=== PATIENT | male | born 2005 | race African-American/Black ===

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

== ENCOUNTER 2025-05-14 01:30 | Inpatient (IN) | payer OTHER, SELFPAY ==
[2025-05-14] VITALS (56 sets, daily range): BP systolic 154–215; BP diastolic 77–116; PULSE 96–155; RESP 18–43; TEMP 36.5–37.7; O2SAT 88–99; BMI 48.1
--- NOTE | ~2025-05-14 | XR_ITS ---
Examination: XR chest 1V portable Clinical History: cough, wheeze, dyspnea Comparison: 05/02/2011 Technique: Portable AP Findings: Heart size normal. Right basilar opacity not excluded. No acute bony abnormality. IMPRESSION: 1. Right basilar airspace opacity not excluded. Recommend PA and lateral films with deep inspiration. Reviewed, dictated and finalized at location R.
--- NOTE | ~2025-05-14 | CT_ITS ---
CTA chest PE protocol HISTORY:?Pulm embolism . COMPARISON: None. TECHNIQUE: Following the noncontrasted anesthesiology resident, axial images of the thorax were obtained following infusion of 100 cc of Isovue 370. Post-processing on an independent workstation was performed to reconstruct MIP images for evaluation of the thoracic vasculature. FINDINGS: There is no pulmonary embolism, aortic dissection, thoracic aneurysm or pericardial fluid. Heart is enlarged. Groundglass infiltrates are noted in the lower lobes bilaterally. No pleural effusion or pneumothorax is noted. There is no axillary, mediastinal or hilar adenopathy. Limited evaluation of the upper abdomen demonstrates no gross abnormalities. Review of bone windows demonstrates no osteoblastic or lytic lesions. IMPRESSION: There is no pulmonary embolism, aortic dissection, pericardial fluid or thoracic aneurysm. There are mild groundglass infiltrate in the lower lobes bilaterally. All CT scans at this facility are performed using low dose modulation techniques as appropriate to perform exam including the following: automated exposure control; use of iterative reconstruction technique; adjustment of the mA and/or kV according to patient size (this includes techniques or standardized protocols for targeted exams where dose is matched to indication/reason for exam). Reviewed, dictated and finalized at location S. IMPRESSION: There is no pulmonary embolism, aortic dissection, pericardial fluid or thoraci c aneurysm. There are mild groundglass infiltrate in the lower lobes bilaterally. All CT scans at this facility are performed using low dose modulation techniqu es as appropriate to perform exam including the following: automated exposure c ontrol; use of iterative reconstruction technique; adjustment of the mA and/or kV according to patient size (this includes techniques or standardized protocol s for targeted exams where dose is matched to indication/reason for exam).
--- NOTE | ~2025-05-14 | XR_ITS ---
COMPARISON:[ None] FINDINGS: Frontal and lateral views of the chest were obtained.[ The lungs are clear. ] [ ] [The heart size is normal in size.] [Pulmonary vasculature is unremarkable.] [ ] [Osseous structures are intact.] IMPRESSION: [No acute lung findings.] [ ] Reviewed, dictated and finalized at location S.
--- NOTE | 2025-05-14 02:00 | ECG_ITS ---
Test Date: 2025-05-14 03:36:56 Measurements Intervals Bone Gap Rate: 138 P: 85 IN: 165 QRS: 78 QRSD: 110 T: 4 QT: 330 QTc: 500 Interpretive Statements SINUS TACHYCARDIA NONSPECIFIC ST-T WAVE ABNORMALITY- INFERIOR LEADS BASELINE ARTIFACT- I, II, III, AVR, AVL, AVF, V1 ABNORMAL ECG No previous ECG available for comparison Electronically Signed On 05-14-2025 06:29:09 CDT by Kevin Funes D.O.
--- NOTE | 2025-05-14 02:03 | ED.ASTHMA ---
HPI - Asthma General Chief Complaint: Asthma Stated Complaint: Asthma Time Seen by Provider: 05/14/25 01:54 Source: patient and family Mode of arrival: ambulatory Limitations: no limitations History of Present Illness HPI Narrative: Patient is a 20-year-old male presents to the emergency department accompanied by father complaining of an asthma exacerbation. Patient notes it started a few days ago with the runny nose and congestion and he started to feel some difficulty breathing, notes that he has a nebulizer home but the tubing is a step and is in getting an affective nebulizer treatment. Patient is he took a prednisone he had left over from a while ago today. Patient is that he took some Benadryl for the congestion. Patient admits to a cough productive of yellow sputum. 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 Patient has not had any requirement for ICU or noninvasive positive-pressure ventilation or intubation throughout adolescents. Patient denies any known fevers, but admits to feeling warm. Patient notes the breathing treatments he was able to get with his machine helped but it is coming right back. Patient denies chest pain. Patient denies vomiting, diarrhea. Patient denies seeing a piccoloist. Patient notes he manages his asthma when asked who manages his asthma. Related Data Allergies Allergy/AdvReac Type Severity Reaction Status Date / Time Penicillins Allergy Rash Verified 05/14/25 01:39 Review of Systems Review of Systems: A 10 system review of systems was completed on the patient and is negative except for what is stated in the HPI. Nursing and ancillary documentation was reviewed. [facility] Past Medical History Medical History (Updated 05/14/25 @ 07:05 by Damon Jordan DO) Asthma Social History Social History (Updated 06/30/22 @ 04:02 by José Miguel Pardo MD) Smoking status: Never smoker Alcohol intake: never Substance use: never Exam Narrative: CONST: Moderate acute respiratory distress, conversational dyspnea. Obese. On 2.5 L nasal cannula. HENMT: Head is normocephalic and atraumatic. Tacky mucous membranes. No posterior oropharynx erythema. Bilateral nasal congestion. EYES: No scleral icterus. No conjunctival injection or pallor. PERRL. NECK: No meningeal signs. RESP: Diffuse expiratory wheeze with a moderately prolonged expiratory phase, no focal adventitious breath sounds. CARDIO: Tachycardic rate. Regular rhythm. 2+ DP and radial pulses bilaterally. GI: Nondistended. No tenderness to palpation. Soft. : No CVA tenderness to palpation. SKIN: No rashes or lesions noted on exposed skin. NEURO: Oriented x3. Moves all extremities. EXTREM/MSK/BACK: No pedal edema. PSYCH: Normal affect. Course Vital Signs Vital signs: Vital Signs Temperature 99.9 F H 05/14/25 01:34 Pulse Rate 130 H 05/14/25 01:34 Respiratory Rate 24 H 05/14/25 01:34 Blood Pressure 202/116 H 05/14/25 01:34 Pulse Oximetry 91 05/14/25 01:34 Oxygen Delivery Room Air 05/14/25 01:34 Temperature 99.9 F H 05/14/25 01:34 Pulse Rate 123 H 05/14/25 05:30 Respiratory Rate 28 H 05/14/25 05:30 Blood Pressure 168/103 H 05/14/25 04:01 Pulse Oximetry 94 05/14/25 05:30 Oxygen Delivery Room Air 05/14/25 01:46 MDM - Asthma MDM Narrative Medical decision making narrative: Patient presents with the above complaint. Initial vitals are remarkable for a blood pressure of 202/116, tachycardia with a pulse of 130, tachypneic with a respiratory rate of 24, temperature of 99.9? F, saturating 91% on room air. Physical examination as noted above. Differential diagnosis includes was not limited to: Asthma exacerbation, pneumonia, pneumothorax, viral URI, metabolic derangement, dehydration, heart failure, hypertensive urgency, sepsis. Plan discussed: Breathing treatments, chest x-ray, EKG, continues cardiac monitoring, continuous pulse oximetry, Solu-Medrol, magnesium sulfate, laboratory analysis. EKG reveals a heart rate of 138, rhythm is sinus tachycardia, axis is normal, nonspecific T-wave abnormality, no ST elevations, no old EKG on file for comparison. Initial stat rad radiologist impression of the chest x-ray is cardiomegaly. No acute process. CBC reveals a white blood cell count 14.8. VBG reveals a pH of 7.373, pCO2 of 39.5. Comprehensive metabolic panel reveals a potassium of 3.2, anion gap 13, glucose of 117. BNP is 116. TSH is 1.030. Troponin is less than 0.012. Magnesium is 2.0. Lactic acid is 2.1. On multiple reassessments patient is noted that he feels slightly better, patient is still tachypneic to the low 30s, on supplemental oxygen 2.5 L, blood pressure is high, heart rate is still elevated at 120s. Patient ordered IV fluids. Our radiologist interpreted the chest x-ray as: Findings: Heart size normal. Right basilar opacity not excluded. No acute bony abnormality. IMPRESSION: 1. Right basilar airspace opacity not excluded. Recommend PA and lateral films with deep inspiration. Patient ordered antibiotics. I spoke with the hospitalist on-call who has accepted the patient for admission. CRITICAL CARE ADDENDUM: Indication: resp failure, asthma exacerbation, sepsis, pneumonia Time type: intermittent I provided a total of 45 minutes of critical care excluding separately billable procedures. This includes time w/ initial bedside evaluation, reviewing old records, review of testing done while under my care, discussion w/ the family, nurses, and guiding the patient?s care while in the emergency department. Approximate time distribution: 15 minutes ? Initial evaluation, d/w involved parties, attempting to gather old records. 10 minutes ? Documenting medical record 10 minutes ? Review of results (EKGs, labs, imaging) 10 minutes ? Serial repeat bedside evaluation Please see main chart for details. Excludes separately billable procedures. Lab Data 05/14/25 03:10 05/14/25 03:10 Labs: Lab Results 05/14/25 05/14/25 Range/Units 03:10 03:12 WBC 14.8 H (4.5-10.0) K/mm3 RBC 5.12 (4.6-6.20) M/mm3 Hgb 15.3 (14.0-18.0) g/dL Hct 46.4 (42.0-52.0) % MCV 90.6 (80-100) fl MCH 29.9 (26-34) pg MCHC 33.0 (32-36) g/dl RDW 14.2 (11.5-14.5) % Plt Count 307 (150-375) k/mm3 MPV 9.0 (7.4-10.4) fl Immature Gran % (Auto) 0.3 (0-0.5) % Neut % (Auto) 75.5 H (45.5-73.1) % Lymph % (Auto) 14.7 L (18.3-44.2) % Darke % (Auto) 7.6 (2.6-8.5) % Eos % (Auto) 1.7 (0-4.4) % Baso % (Auto) 0.2 (0.2-1.2) % Lymph # (Auto) 2.17 (0.9-3.2) K/mm3 Darke # (Auto) 1.1 H (0.1-0.6) K/mm3 Eos # (Auto) 0.3 (0-0.3) K/mm3 Baso # (Auto) 0.0 (0.0-0.1) K/mm3 Abs Immat Gran (auto) 0.04 H (0.00-0.031) K/mm3 Absolute Neuts (auto) 11.2 H (1.3-6.7) K/mm3 Absolute Nucleated RBC 0.000 (0.0-0.012) K/mm3 Nucleated RBC % 0.0 (0.0-0.2) % Sodium 140 (137-145) mmol/L Potassium 3.2 L (3.4-5.0) mmol/L Chloride 102 (98-107) mmol/L Carbon Dioxide 25 (22-30) mmol/L Anion Gap 13 H (4-12) mmol/L BUN 10 (9-20) mg/dL Creatinine 0.86 (0.7-1.3) mg/dL Estim Creat Clear Calc 129 ml/min Estimated GFR > 60 (59 - ) Glucose 117 H (65-110) mg/dL Lactic Acid 2.1 H (0.7-2.0) mmol/L Calcium 9.5 (8.4-10.2) mg/dL Magnesium 2.0 (1.6-2.3) mg/dL Total Bilirubin 0.9 (0.2-1.3) mg/dL AST 44 (17-59) U/L ALT 40 (6-50) U/L Alkaline Phosphatase 102 (38-126) U/L Troponin I < 0.012 (0.000-0.034) ng/mL NT-Pro-B Natriuret Pep 116 H (19.9-100) pg/mL Total Protein 9.4 H (6.3-8.2) g/dL Albumin 5.2 H (3.5-5.1) g/dL TSH (Reflex) 1.030 (0.465-4.68) uIU/mL Influenza A (RT-PCR) Negative (Negative) Influenza B (RT-PCR) Negative (Negative) RSV (RT-PCR) Negative (Negative) SARS-CoV-2 RNA (RT-PCR) Negative (Negative) ABG Data ABG results: 05/14/25 03:10 VBG pH 7.373 VBG pCO2 39.5 L VBG pO2 53.5 H VBG HCO3 22.5 L O2 Delivery Device Other device O2 Liters/Min 7.0 FiO2 50 Critical Care Time Critical Care Time Critical Care Time: Yes Total Critical Care Time: 45 Discharge Plan Discharge Clinical Impression: Hypertension, Asthma exacerbation, Hypoxia, Acute hypokalemia, Acute respiratory distress Pneumonia Qualifiers: Pneumonia type: due to unspecified organism Laterality: right Lung location: lower lobe of lung Qualified Code(s): J18.9 - Pneumonia, unspecified organism Patient Disposition: Still a Patient Condition: Serious Patient Language: Danish Prescriptions: No Action albuterol sulfate 90 mcg/actuation HFA aerosol inhaler 2 inh inhalation Q4H PRN (Reason: shortness of breath or wheezing) Qty: 8.5 0RF prednisone 20 mg tablet 20 mg PO DAILY Qty: 4 0RF Follow-up/Referrals: PHYSICIAN,DIGGING MACHINE OPERATOR [Primary Care Provider, Internal Medicine] Time of Disposition: 06:05
[2025-05-14] MEDS: IPRATROPIUM BR 0.02% INH SOLN 0.5 MG/2.5 ML VIAL INHALATION (02:17)
[2025-05-14] MEDS: ALBUTEROL SULFATE NEB 2.5 MG/3 ML INH 10 MG INHALATION (02:18)
[2025-05-14 03:26] LABS: Hematocrit 46.4 % (42.0-52.0); Hemoglobin 15.3 g/dL (14.0-18.0); Immature Granulocyte Percent A 0.3 % (0-0.5); Lymphocytes Absolute Auto 2.17 K/mm3 (0.9-3.2); Mean Corpuscular HGB Conc 33.0 g/dl (32-36); Mean Corpuscular Hemoglobin 29.9 pg (26-34); Mean Corpuscular Volume 90.6 fl (80-100); Nucleated Red Blood Cells Absolute Auto 0.000 K/mm3 (0.0-0.012); Nucleated Red Blood Cells Perc 0.0 % (0.0-0.2); Platelet Count Result 307 k/mm3 (150-375); Red Blood Count 5.12 M/mm3 (4.6-6.20); White Blood Count 14.8 K/mm3 (4.5-10.0)
[2025-05-14 03:35] LABS: Fractional Inspired Oxygen 50 %; HCO3 VBG 22.5 mEq/l (24.0-30.0); PCO2 VBG 39.5 mmHg (42.0-48.0); PO2 VBG 53.5 mmHg (35.0-45.0); pH VBG 7.373 (7.300-7.400)
[2025-05-14 03:37] LABS: Liters per Minute 7.0 LPM
[2025-05-14 03:57] LABS: Magnesium 2.0 mg/dL (1.6-2.3)
[2025-05-14 03:58] LABS: Alanine Aminotransferase 40 U/L (6-50); Albumin Level 5.2 g/dL (3.5-5.1); Alkaline Phosphatase 102 U/L (38-126); Anion Gap 13 mmol/L (4-12); Aspartate Amino Transferase 44 U/L (17-59); Bilirubin,Total 0.9 mg/dL (0.2-1.3); Blood Urea Nitrogen 10 mg/dL (9-20); Calcium 9.5 mg/dL (8.4-10.2); Carbon Dioxide 25 mmol/L (22-30); Chloride 102 mmol/L (98-107); Estimated CRCL calculation 129 ml/min; Estimated Glomerular Filt Rate > 60; Glucose 117 mg/dL (65-110); Potassium 3.2 mmol/L (3.4-5.0); Sodium 140 mmol/L (137-145); Total Protein 9.4 g/dL (6.3-8.2)
[2025-05-14 04:09] LABS: Influenza A QL RT-PCR Negative (Negative); Influenza B QL RT-PCR Negative (Negative); NT Pro B Type Natriuretic Pept 116 pg/mL (19.9-100); RSV RNA, RT-PCR Negative (Negative); SARS-CoV-2 RNA PCR Negative (Negative); Troponin I < 0.012 ng/mL (0.000-0.034)
[2025-05-14] MEDS: MAGNESIUM SULF 2 GM/WATER 50ML 2 GM/50 ML BAG IVPB (04:10)
[2025-05-14 04:29] LABS: Thyroid Stimulating Hormone Reflex 1.030 uIU/mL (0.465-4.68)
[2025-05-14] MEDS: KETOROLAC 15 MG/ML VIAL (*BKC) IV PUSH (06:38)
[2025-05-14] MEDS: SODIUM CHLORIDE 0.9% IV 1,000 ML 150 ML IV CONT ×2 (06:38→11:04)
[2025-05-14] MEDS: DOXYCYCLINE IV 100 MG in SODIUM CHLORIDE 0.9% IV 100 ML IVPB ×2 (06:39→17:24)
[2025-05-14] MEDS: cefTRIAXone 1 GM in SODIUM CHLORIDE 0.9% IV 50 ML 100 ML IVPB (06:40)
[2025-05-14] MEDS: IPRATROPIUM 0.5 MG/ALBUTEROL SULFATE 2.5 MG (BASE) AMPUL.NEB 3 ML INHALATION ×3 (07:56→20:20)
--- NOTE | 2025-05-14 08:43 | ADMGEN ---
This patient, Tr Castaneda, was admitted to IMU Room 206-02. Patient/family oriented to hospital policies and general routines including ID bracelet, bed and alarms, visiting hours, pain management, procedures, bathroom and other care routines, personal items, smoking policy, room service/diet, and visiting hours. Information on how to activate the Rapid Response Team has been discussed. Patient/Family are encouraged to report perceived risks to care and to ask questions if they do not understand what they are told or what they should do.
[2025-05-14 10:04] LABS: Hematocrit 44.8 % (42.0-52.0); Hemoglobin 14.7 g/dL (14.0-18.0); Immature Granulocyte Percent A 0.3 % (0-0.5); Lymphocytes Absolute Auto 0.81 K/mm3 (0.9-3.2); Mean Corpuscular HGB Conc 32.8 g/dl (32-36); Mean Corpuscular Hemoglobin 30.1 pg (26-34); Mean Corpuscular Volume 91.8 fl (80-100); Nucleated Red Blood Cells Absolute Auto 0.000 K/mm3 (0.0-0.012); Nucleated Red Blood Cells Perc 0.0 % (0.0-0.2); Platelet Count Result 281 k/mm3 (150-375); Red Blood Count 4.88 M/mm3 (4.6-6.20); White Blood Count 12.0 K/mm3 (4.5-10.0)
[2025-05-14 10:19] LABS: Alanine Aminotransferase 42 U/L (6-50); Albumin Level 4.8 g/dL (3.5-5.1); Alkaline Phosphatase 94 U/L (38-126); Anion Gap 14 mmol/L (4-12); Aspartate Amino Transferase 38 U/L (17-59); Bilirubin,Total 0.7 mg/dL (0.2-1.3); Blood Urea Nitrogen 12 mg/dL (9-20); Calcium 9.2 mg/dL (8.4-10.2); Carbon Dioxide 22 mmol/L (22-30); Chloride 104 mmol/L (98-107); Estimated CRCL calculation 170 ml/min; Estimated Glomerular Filt Rate > 60; Glucose 205 mg/dL (65-110); Potassium 4.2 mmol/L (3.4-5.0); Sodium 140 mmol/L (137-145); Total Protein 8.6 g/dL (6.3-8.2)
[2025-05-14] MEDS: DOCUSATE SODIUM 100 MG CAPSULE PO ×2 (11:04→17:24)
--- NOTE | 2025-05-14 11:19 | PC.NURSE ---
spoke with MD about patients blood pressure prior to giving the ordered Chlorthalidone. BP taken and charted, 175/77. MD states hold medication for 2 hours and recheck BP.
--- NOTE | 2025-05-14 12:10 | PM.IMHP ---
H&P: HPI History of Present Illness Date/Time: 05/14/25 12:10 Chief Complaint: Asthma exacerbation Narrative: Patient is a 20-year-old male past medical history of asthma presenting with onset of increased sneezing, noting blood in mucus from his nose since last Wednesday, followed by onset of increasing shortness of breath, wheezing, coughing the day after that has not improved since. His home albuterol inhaler helped, however symptoms have persisted and not resolved, prompting him to come to the emergency department. In the ED blood pressure was noted to be extremely elevated, 202/116, improved to 168/103 several hours later. Patient denies relevant history of hypertension and is not on medications for this at this time. Patient denies fever, chills, purulent sputum at this time. Chest x-ray initially shows a right basilar patchy opacity but repeat x-ray with two views was recommended to confirm this. He was started on antibiotics however to cover. Potassium was 3.2, repleted in the ED, patient also did have a leukocytosis and elevated lactic acid 2.1. COVID and flu are negative. After treatments with nebulized albuterol and ipratropium, magnesium sulfate, patient discharged to improve somewhat but is still having symptoms at this time. Review of Systems Constitutional: Constitutional: Reports as per HPI Eyes: Eyes: Reports no additional eye complaints ENT: Reports system reviewed and no additional complaints, except as documented Cardiovascular: Cardiovascular: Reports as per HPI Respiratory: Respiratory: Reports as per HPI Gastrointestinal: Gastrointestinal: Reports no additional gastrointestinal complaints Musculoskeletal: Musculoskeletal: Reports no additional musculoskeletal complaints Neurologic: Reports system reviewed and no additional complaints, except as documented Psychiatric: Psychiatric: Reports no additional psychiatric complaints [facility] Past Medical History Medical History (Updated 05/14/25 @ 12:15 by Cristopher sawyer Oca, MD) Asthma Social History Social History (Updated 06/30/22 @ 04:02 by José Miguel Pardo MD) Smoking status: Never smoker Alcohol intake: never Substance use: never Substance use type: does not use Lack of Transportation: No Lack of Food: Sometimes True Current Housing: I Have Housing Concerned About Future Housing: No Difficulty Paying Gas/Electric Bills: No Difficulty Paying for Meds: No Currently Unemployed: No Education: High School Diploma/GED Difficulty w/ Childcare or Family Care: No Spiritual care concerns: No Meds Home Medications and Allergies Home Medications ?Medication ?Instructions ?Recorded ?Confirmed ?Type albuterol sulfate 90 mcg/actuation 2 inh inhalation Q4H PRN shortness 06/30/22 05/14/25 Rx aerosol inhaler of breath or wheezing #8.5 grams prednisone 20 mg tablet 20 mg PO DAILY #4 tabs 06/30/22 05/14/25 Rx Allergies Allergy/AdvReac Type Severity Reaction Status Date / Time Penicillins Allergy Rash Verified 05/14/25 08:44 Vital Signs Vital Signs - 24 hr 05/14/25 01:34 05/14/25 01:46 05/14/25 01:49 Temperature 99.9 F H Pulse Rate 130 H 133 H Respiratory Rate 24 H 32 H Blood Pressure 202/116 H 205/105 H Pulse Oximetry 91 97 90 Oxygen Delivery Room Air Room Air Oxygen Flow Rate 05/14/25 01:50 05/14/25 02:00 05/14/25 02:01 Temperature Pulse Rate 126 H 129 H 128 H Respiratory Rate 32 H 23 H 29 H Blood Pressure 188/107 H Pulse Oximetry 88 L 94 94 Oxygen Delivery Oxygen Flow Rate 05/14/25 02:15 05/14/25 02:16 05/14/25 02:22 Temperature Pulse Rate 125 H 128 H 122 H Respiratory Rate 27 H 32 H 36 H Blood Pressure 196/113 H Pulse Oximetry 97 95 Oxygen Delivery Oxygen Flow Rate 05/14/25 02:30 05/14/25 02:31 05/14/25 02:51 Temperature Pulse Rate 129 H 127 H 121 H Respiratory Rate 36 H 37 H 37 H Blood Pressure 182/104 H Pulse Oximetry 99 98 99 Oxygen Delivery Oxygen Flow Rate 05/14/25 03:03 05/14/25 03:06 05/14/25 03:15 Temperature Pulse Rate 155 H 128 H 123 H Respiratory Rate 37 H 28 H 32 H Blood Pressure Pulse Oximetry 97 97 Oxygen Delivery Oxygen Flow Rate 05/14/25 03:16 05/14/25 03:31 05/14/25 03:32 Temperature Pulse Rate 145 H 135 H 131 H Respiratory Rate 25 H 26 H 42 H Blood Pressure 171/105 H 194/90 H Pulse Oximetry 96 97 96 Oxygen Delivery Oxygen Flow Rate 05/14/25 03:45 05/14/25 03:46 05/14/25 04:00 Temperature Pulse Rate 132 H 128 H 118 H Respiratory Rate 34 H 37 H 35 H Blood Pressure 169/99 H Pulse Oximetry 94 95 93 Oxygen Delivery Oxygen Flow Rate 05/14/25 04:01 05/14/25 04:15 05/14/25 05:06 Temperature Pulse Rate 122 H 116 H 115 H Respiratory Rate 43 H 38 H 38 H Blood Pressure 168/103 H Pulse Oximetry 93 92 96 Oxygen Delivery Oxygen Flow Rate 05/14/25 05:25 05/14/25 05:30 05/14/25 05:31 Temperature Pulse Rate 121 H 123 H 120 H Respiratory Rate 35 H 28 H 29 H Blood Pressure 178/90 H Pulse Oximetry 94 94 94 Oxygen Delivery Oxygen Flow Rate 05/14/25 05:45 05/14/25 05:46 05/14/25 06:00 Temperature Pulse Rate 114 H 123 H 113 H Respiratory Rate 21 H 29 H 33 H Blood Pressure 181/108 H Pulse Oximetry 92 91 94 Oxygen Delivery Oxygen Flow Rate 05/14/25 06:01 05/14/25 06:15 05/14/25 06:16 Temperature Pulse Rate 121 H 115 H 115 H Respiratory Rate 22 H 31 H 27 H Blood Pressure 178/109 H 177/103 H Pulse Oximetry 94 93 93 Oxygen Delivery Oxygen Flow Rate 05/14/25 06:57 05/14/25 07:04 05/14/25 07:47 Temperature Pulse Rate 111 H 107 H 112 H Respiratory Rate 34 H 30 H 30 H Blood Pressure Pulse Oximetry 94 95 93 Oxygen Delivery Oxygen Flow Rate 05/14/25 07:57 05/14/25 08:10 05/14/25 08:20 Temperature Pulse Rate 108 H 110 H 115 H Respiratory Rate 24 H 34 H 20 Blood Pressure 181/95 H Pulse Oximetry 92 93 Oxygen Delivery Oxygen Flow Rate 05/14/25 08:30 05/14/25 08:49 05/14/25 10:00 Temperature 97.9 F Pulse Rate 107 H 107 H Respiratory Rate 18 Blood Pressure 178/105 H 215/113 H Pulse Oximetry 97 Oxygen Delivery Oxygen Flow Rate 05/14/25 11:01 05/14/25 11:14 05/14/25 11:56 Temperature 97.7 F Pulse Rate 104 H Respiratory Rate 22 H Blood Pressure 175/77 H 154/93 H Pulse Oximetry 97 96 Oxygen Delivery Nasal Cannula Oxygen Flow Rate 2 Exam Const: General: no acute distress HENMT: Face/Nose/Sinus: Normal nares present Mouth: Yes moist mucous membranes Eyes: General: appearance normal, both eyes and all related structures Sclera: sclerae normal Pupils: Equal, round and reactive pupils present EOM: EOMs intact bilaterally Neck: Neck: supple Resp: Auscultation: wheezes Other: Tachypneic Cardio: Rate: tachycardic Rhythm: regular rhythm GI: GI Palp: Yes Soft to palpation Auscultation: normal bowel sounds Neuro: Speech: normal speech Motor exam (neuro): 5/5 motor strength present throughout and Normal motor muscle tone present throughout Sensory Exam: normal sensation Psych: Mental Status: mental status grossly normal Affect: normal affect H&P: Results Labs Labs: Short CBC 05/14/25 05/14/25 Range/Units 03:10 09:58 WBC 14.8 H 12.0 H (4.5-10.0) K/mm3 Hgb 15.3 14.7 (14.0-18.0) g/dL Hct 46.4 44.8 (42.0-52.0) % Plt Count 307 281 (150-375) k/mm3 BMP 05/14/25 05/14/25 03:10 09:58 Sodium 140 140 Potassium 3.2 L 4.2 Chloride 102 104 Carbon Dioxide 25 22 BUN 10 12 Creatinine 0.86 0.83 Glucose 117 H 205 H Calcium 9.5 9.2 Cardiac Enzymes 05/14/25 Range/Units 03:10 Troponin I < 0.012 (0.000-0.034) ng/mL Liver Function 05/14/25 05/14/25 Range/Units 03:10 09:58 Total Bilirubin 0.9 0.7 (0.2-1.3) mg/dL AST 44 38 (17-59) U/L ALT 40 42 (6-50) U/L Alkaline Phosphatase 102 94 (38-126) U/L Albumin 5.2 H 4.8 (3.5-5.1) g/dL Assessment and Plan Assessment and plan (1) Asthma exacerbation: Code(s): J45.901 - Unspecified asthma with (acute) exacerbation Status: Acute Assessment and Plan: History of asthma since childhood, does report that he was hospitalized and was a young child in ICU however since then has not had any further significant or severe asthma exacerbations. Only takes albuterol p.r.n. inhaled for symptoms Plan: Continue albuterol/ipratropium nebulized q.6 p.r.n. Continue albuterol inhaler Q 4 p.r.n. Methylprednisone 60 mg Q 8 today, consider transitioning to q.12 tomorrow if patient is improving Repeat chest x-ray with two views to confirm or rule out presence of pneumonia-discontinue ceftriaxone if no pneumonia identified (2) Hypertension: Code(s): I10 - Essential (primary) hypertension Status: Acute Assessment and Plan: Blood pressure extremely elevated with concern for asymptomatic hypertensive urgency. Has been coming down on its own from systolic of 200s. Last blood pressure is 175/77, which further reduced to 154/93 without need for pharmacological intervention Plan: Consider starting low-dose chlorthalidone or other antihypertensive blood pressure remains elevated however monitor blood pressure for now as to not reduce it significantly Order was placed but has been removed to ensure patient does not receive (3) Elevated lactic acid level: Code(s): R79.89 - Other specified abnormal findings of blood chemistry Status: Acute Plan Lactic acid slightly elevated at 2.1 on admission Plan: Trend lactic acid Quality VTE Prophylaxis VTE prophylaxis: mechanical ordered and pharmacologic ordered Hospitalist MIPS Advance Care Plan I have confirmed that the patient's Advanced Care Plan is present, code status is documented, or surrogate decision maker is listed in patient medical record.: Yes Medication Reconciliation I have utilized all available resources to obtain, update and review the patients current medications (includes all prescriptions, OTC, herbals, cannabis, and nutritional supplements).: Yes
[2025-05-15] VITALS (18 sets, daily range): BP systolic 149–172; BP diastolic 89–98; PULSE 92–131; RESP 20–26; TEMP 36.8–37.1; O2SAT 92–98
--- NOTE | 2025-05-15 | ECHO_ITS ---
Patient Info Name: Tr Castaneda Age: 20 years : 2005 Gender: Male Ht: 68 in Wt: 321 lbs BSA: 2.72 m2 HR: 93 bpm BP: 149 / 94 mmHg Heart Rhythm: Sinus Rhythm Technical Quality: Good Exam Date: 05/15/2025 12:45 PM Patient Status: I Admit Date: 05/14/2025 Exam Type: CA echo doppler color flow Complete two-dimensional, color flow and Doppler transthoracic echocardiogram is performed. Staff Referring Physician: Damon Jordan Bark Tanner: Yana Jaffe Attending Provider: Shwetha Batista DO Summary 1. Complete two-dimensional, color flow and Doppler transthoracic echocardiogram is performed. 2. Left ventricular systolic function is normal, estimated at 65-70. 3. The left ventricular diastolic function is normal. 4. There is trace tricuspid valve regurgitation. 5. No pulmonary hypertension, estimated pulmonary arterial systolic pressure is 24 mmHg. Left Ventricle Left ventricular chamber dimension is normal. Left ventricular systolic function is normal, estimated at 65-70. There is mildly increased left ventricular wall thickness. Left ventricular septal wall motion is normal. The left ventricular diastolic function is normal. Right Ventricle Right ventricular chamber dimension is normal. Right ventricular systolic function is normal. Left Atria Left atrial chamber dimension is normal. Right Atria Right atrial chamber dimension is normal. Aortic Valve The aortic valve is trileaflet. There is no aortic valve sclerosis. There is no aortic valve stenosis. There is no aortic valve regurgitation. Pulmonic Valve The pulmonic valve is normal. There is no pulmonic valve stenosis. There is no pulmonic regurgitation. Mitral Valve The mitral valve has normal leaflets. There is no mitral valve stenosis. There is no mitral valve regurgitation. Tricuspid Valve The tricuspid valve leaflets are normal. There is no significant tricuspid valve stenosis. There is trace tricuspid valve regurgitation. No pulmonary hypertension, estimated pulmonary arterial systolic pressure is 24 mmHg. Pericardium/Pleural The pericardium appears normal. There is no pericardial effusion. Inferior Vena Cava Normal inferior vena cava with >50% collapse upon inspiration consistent with normal right atrial pressure, 5 mmHg. Aorta The aortic root size at the sinus of Valsalva is normal. The prox ascending aorta size is normal. Left Ventricular Outflow Tract Name Value Normal LVOT 2D LVOT Diameter 2.3 cm LVOT Doppler LVOT Peak Velocity 112 cm/s LVOT Peak Gradient 5 mmHg LVOT Mean Gradient 2 mmHg LVOT VTI 17 cm LVOT VTI/AV VTI Ratio 0.9 LVOT Stroke Volume 72 ml LVOT CO 7.1 l/min LVOT CI 2.6 l/min/m2 Pulmonic Valve Name Value Normal RVOT Doppler RVOT Peak Velocity 105 cm/s RVOT Peak Gradient 4 mmHg PV Doppler PV Peak Velocity 144 cm/s PV Peak Gradient 8 mmHg Mitral Valve Name Value Normal MV Diastolic Function MV E Peak Velocity 87 cm/s MV A Peak Velocity 74 cm/s MV E/A 1.2 MV Decel Time (PW) 113 ms MV Annular TDI MV E/e' (Septal) 6.0 MV E/e' (Lateral) 7.2 MV E/e' (Average) 6.6 Tricuspid Valve Name Value Normal TV Regurgitation Doppler TR Peak Velocity 215 cm/s TR Peak Gradient 19 mmHg Estimated PAP/RSVP RA Pressure 5 mmHg <=5 PA Systolic Pressure 24 mmHg <36 RV Systolic Pressure 24 mmHg <36 TV Annular TDI TV Lateral Kristin s' Velocity 21.0 cm/s >=9.5 Aorta Name Value Normal Ascending Aorta Ao Root Diameter (MM) 3.5 cm Ao Root Diam Index (MM) 1.3 cm/m2 Aortic Valve Name Value Normal AV Doppler AV Peak Velocity 157 cm/s AV Peak Gradient 10 mmHg AV Mean Gradient 4 mmHg AV VTI 20 cm AV Area (Cont Eq VTI) 3.7 cm2 >=3.0 AV Area (Cont Eq Sim) 3.0 cm2 AV DI (Sim) 0.71 AV Regurgitation 2D LVOT Area 4.2 cm2 Ventricles Name Value Normal LV Dimensions 2D/MM IVS Diastolic Thickness (2D) 1.1 cm 0.6-1.0 LVID Diastole (2D) 5.7 cm 4.2-5.8 LVIW Diastolic Thickness (2D) 1.0 cm 0.6-1.0 LVID Systole (2D) 3.3 cm 2.5-4.0 LVOT Diameter 2.3 cm LV Mass (2D Cubed) 253.20 g 88.00-224.00 LV Mass Index (2D Cubed) 93 g/m2 49-115 Relative Wall Thickness (2D) 0.37 <=0.42 LV Fractional Shortening/Ejection Fraction 2D/MM LV Fractional Shortening (2D) 43 % 25-43 LV EF (2D Teichmichaelz) 73 % LV Diastolic Volume (4C MOD) 183 ml LV EF (4C MOD) 67 % LV Diastolic Volume (2C MOD) 182 ml LV EF (2C MOD) 67 % LV Diastolic Volume (BP MOD) 188 ml 62-150 LV Diastolic Volume Index (BP MOD) 69 ml/m2 34-74 LV Systolic Volume (BP MOD) 62 ml 21-61 LV Systolic Volume Index (BP MOD) 23 ml/m2 11-31 LV EF (BP MOD) 67 % 52-72 LV Diastolic Length (4C) 9.4 cm LV Systolic Length (4C) 7.6 cm LV Stroke Volume (4C MOD) 122 ml Atria Name Value Normal LA Dimensions LA Dimension (MM) 4.0 cm 3.0-4.0 LA Volume (4C A-L) 67 ml LA Volume (BP A-L) 75 ml RA Dimensions RA Area (4C) 18.7 cm2 <=18.0 Report Signatures
[2025-05-15] MEDS: IPRATROPIUM 0.5 MG/ALBUTEROL SULFATE 2.5 MG (BASE) AMPUL.NEB 3 ML INHALATION ×4 (01:57→20:57)
[2025-05-15] MEDS: SODIUM CHLORIDE 0.9% IV 1,000 ML 150 ML IV CONT (01:59)
[2025-05-15 04:10] LABS: Hematocrit 42.8 % (42.0-52.0); Hemoglobin 14.1 g/dL (14.0-18.0); Immature Granulocyte Percent A 0.7 % (0-0.5); Lymphocytes Absolute Auto 1.48 K/mm3 (0.9-3.2); Mean Corpuscular HGB Conc 32.9 g/dl (32-36); Mean Corpuscular Hemoglobin 30.0 pg (26-34); Mean Corpuscular Volume 91.1 fl (80-100); Nucleated Red Blood Cells Absolute Auto 0.000 K/mm3 (0.0-0.012); Nucleated Red Blood Cells Perc 0.0 % (0.0-0.2); Platelet Count Result 303 k/mm3 (150-375); Red Blood Count 4.70 M/mm3 (4.6-6.20); White Blood Count 21.6 K/mm3 (4.5-10.0)
[2025-05-15 04:30] LABS: Alanine Aminotransferase 36 U/L (6-50); Albumin Level 4.5 g/dL (3.5-5.1); Alkaline Phosphatase 85 U/L (38-126); Anion Gap 14 mmol/L (4-12); Aspartate Amino Transferase 34 U/L (17-59); Bilirubin,Total 0.5 mg/dL (0.2-1.3); Blood Urea Nitrogen 16 mg/dL (9-20); Calcium 9.2 mg/dL (8.4-10.2); Carbon Dioxide 20 mmol/L (22-30); Chloride 106 mmol/L (98-107); Estimated CRCL calculation 193 ml/min; Estimated Glomerular Filt Rate > 60; Glucose 143 mg/dL (65-110); Potassium 4.3 mmol/L (3.4-5.0); Sodium 140 mmol/L (137-145); Total Protein 8.0 g/dL (6.3-8.2)
[2025-05-15] MEDS: DOXYCYCLINE IV 100 MG in SODIUM CHLORIDE 0.9% IV 100 ML IVPB ×2 (06:06→17:49)
[2025-05-15] MEDS: DOCUSATE SODIUM 100 MG CAPSULE PO ×2 (08:55→16:01)
[2025-05-15] MEDS: CHLORTHALIDONE 12.5 MG TAB PO (08:55)
[2025-05-15] MEDS: cefTRIAXone 1 GM in SODIUM CHLORIDE 0.9% IV 50 ML 100 ML IVPB (08:56)
--- NOTE | 2025-05-15 10:14 | ECG_ITS ---
Test Date: 2025-05-15 10:27:27 Measurements Intervals [place] Rate: 118 P: 25 TN: 152 QRS: 34 QRSD: 110 T: 0 QT: 348 QTc: 488 Interpretive Statements SINUS TACHYCARDIA INCOMPLETE RIGHT BUNDLE BRANCH BLOCK ABNORMAL ECG Compared to ECG 05/14/2025 03:36:56 HEART RATE HAS DECREASED Electronically Signed On 05-15-2025 11:41:01 CDT by Kevin Funes D.O.
--- NOTE | 2025-05-15 15:04 | P.PNIM_ITS ---
Progress Note: A&P Assessment and Plan (1) Asthma exacerbation: Code(s): J45.901 - Unspecified asthma with (acute) exacerbation Status: Acute Assessment and Plan: History of asthma since childhood, does report that he was hospitalized and was a young child in ICU however since then has not had any further significant or severe asthma exacerbations. Only takes albuterol p.r.n. inhaled for symptoms Plan: Continue albuterol/ipratropium nebulized q.6 p.r.n. Continue albuterol inhaler Q 4 p.r.n. Methylprednisone 60 mg Q 8 today, consider transitioning to q.12 tomorrow if patient is improving Repeat chest x-ray with two views to confirm or rule out presence of pneumonia- discontinue ceftriaxone if no pneumonia identified (2) Hypertension: Code(s): I10 - Essential (primary) hypertension Status: Acute Assessment and Plan: Blood pressure extremely elevated with concern for asymptomatic hypertensive urgency. Has been coming down on its own from systolic of 200s. Last blood pressure is 175/77, which further reduced to 154/93 without need for pharmaco logical intervention Plan: Consider starting low-dose chlorthalidone or other antihypertensive blood pressure remains elevated however monitor blood pressure for now as to not reduce it significantly Order was placed but has been removed to ensure patient does not receive (3) Elevated lactic acid level: Code(s): R79.89 - Other specified abnormal findings of blood chemistry Status: Acute Plan Persistent Tachycardia CTA chest and ECHO ordered to ruled PE and cardiac etiology contineu IVF and monitor DVT prophylaxis on Sq heparin Subjective Date/time seen: 05/15/25 15:04 Interval history: Comfortable at bedside CTA chest and ECHo ordered for tachycardia Review of Systems 2 Constitutional: Constitutional: Reports as per HPI Eyes: Eyes: Reports no additional eye complaints ENT: Reports system reviewed and no additional complaints, except as documented Cardiovascular: Cardiovascular: Reports as per HPI Respiratory: Respiratory: Reports as per HPI Gastrointestinal: Gastrointestinal: Reports no additional gastrointestinal complaints Musculoskeletal: Musculoskeletal: Reports no additional musculoskeletal complaints Neurologic: Reports system reviewed and no additional complaints, except as documented Psychiatric: Psychiatric: Reports no additional psychiatric complaints Exam Const: General: no acute distress HENMT: Face/Nose/Sinus: Normal nares present Mouth: Yes moist mucous membranes Eyes: General: appearance normal, both eyes and all related structures Sclera: sclerae normal Pupils: Equal, round and reactive pupils present EOM: EOMs intact bilaterally Neck: Neck: supple Resp: Auscultation: wheezes Other: Tachypneic Cardio: Rate: tachycardic Rhythm: regular rhythm GI: Auscultation: normal bowel sounds Neuro: Cranial nerves: Yes Equal, round and reactive pupils present Speech: normal speech Motor exam (neuro): 5/5 motor strength present throughout and Normal motor muscle tone present throughout Sensory Exam: normal sensation Psych: Mental Status: mental status grossly normal Affect: normal affect Objective Data Vital Signs Vital Signs: Vital Signs - 24 hr 05/14/25 16:00 05/14/25 16:00 05/14/25 16:00 Temperature 97.7 F Pulse Rate 108 H 108 H Respiratory Rate 24 H Blood Pressure 170/101 H Pulse Oximetry 90 93 Oxygen Delivery Nasal Cannula Oxygen Flow Rate 2 05/14/25 17:43 05/14/25 19:37 05/14/25 20:00 Temperature 98.8 F Pulse Rate 116 H 101 H Respiratory Rate 26 H Blood Pressure 181/110 H Pulse Oximetry 90 92 Oxygen Delivery Nasal Cannula Oxygen Flow Rate 2 05/14/25 20:00 05/14/25 20:23 05/14/25 20:23 Temperature Pulse Rate 104 H 102 H 102 H Respiratory Rate 22 H 22 H Blood Pressure Pulse Oximetry 92 Oxygen Delivery Nasal Cannula Oxygen Flow Rate 2 05/14/25 20:29 05/14/25 22:00 05/14/25 23:48 Temperature Pulse Rate 115 H 108 H Respiratory Rate 22 H Blood Pressure Pulse Oximetry 95 Oxygen Delivery Nasal Cannula Oxygen Flow Rate 2 05/15/25 00:00 05/15/25 00:00 05/15/25 01:57 Temperature 98.8 F Pulse Rate 131 H 122 H 108 H Respiratory Rate 26 H 20 Blood Pressure 172/98 H Pulse Oximetry 94 Oxygen Delivery Oxygen Flow Rate 05/15/25 02:00 05/15/25 02:02 05/15/25 04:00 Temperature 98.8 F Pulse Rate 120 H 115 H 110 H Respiratory Rate 20 24 H Blood Pressure 166/96 H Pulse Oximetry 94 Oxygen Delivery Oxygen Flow Rate 05/15/25 04:00 05/15/25 04:00 05/15/25 06:00 Temperature Pulse Rate 117 H 94 Respiratory Rate Blood Pressure Pulse Oximetry 96 Oxygen Delivery Nasal Cannula Oxygen Flow Rate 2 05/15/25 08:00 05/15/25 08:00 05/15/25 08:00 Temperature 98.3 F Pulse Rate 106 H 109 H Respiratory Rate 20 Blood Pressure 149/94 H Pulse Oximetry 95 93 Oxygen Delivery Room Air Oxygen Flow Rate 05/15/25 08:28 05/15/25 08:31 05/15/25 08:38 Temperature Pulse Rate 115 H 118 H Respiratory Rate 20 20 Blood Pressure Pulse Oximetry 94 Oxygen Delivery Room Air Oxygen Flow Rate 05/15/25 10:00 05/15/25 12:00 Temperature Pulse Rate 118 H 123 H Respiratory Rate Blood Pressure Pulse Oximetry Oxygen Delivery Oxygen Flow Rate Intake/Output Intake/Output: Intake & Output 05/12/25 05/13/25 05/14/25 05/15/25 23:59 23:59 23:59 23:59 Intake Total 3165 1130 Output Total 1300 550 Balance 1865 580 Meds/Results Medications: Active Medications Generic Name Dose Route Start Last Admin Trade Name Freq PRN Reason Stop Dose Admin Acetaminophen 650 mg 05/14/25 09:37 Acetaminophen 325 Mg Tablet PO Q4H PRN Mild Pain (1-3) or Fever Albuterol 2 puff 05/14/25 09:40 Albuterol Sulfate (*Sp) Aerosol 1 Puff INHALATION Q6HRT PRN Shortness Of Breath Albuterol/Ipratropium 3 ml 05/14/25 08:00 05/15/25 08:27 Ipratropium 0.5 Mg/Albuterol Sulfate 2.5 Mg (Base) Ampul.Neb 3 Ml INHALATION 3 ml Q6HRT DHARMESH Administration Bisacodyl 5 mg 05/14/25 09:37 Bisacodyl 5 Mg Tablet Ec PO DAILY PRN Constipation Chlorthalidone 12.5 mg 05/15/25 09:00 05/15/25 08:55 Chlorthalidone 12.5 Mg Tab PO 12.5 mg DAILY DHARMESH Administration Docusate Sodium 100 mg 05/14/25 10:00 05/15/25 08:55 Docusate Sodium 100 Mg Capsule PO 100 mg BID DHARMESH Administration Heparin Sodium (Porcine) 5,000 units 05/14/25 10:00 05/15/25 08:56 Heparin Sodium 5,000 Units/Ml Vial SUB-Q 5,000 units Q12HR DHARMESH Administration Hydralazine HCl 10 mg 05/14/25 20:01 05/14/25 20:54 Hydralazine Hcl 20 Mg/Ml Vial IV PUSH 10 mg Q8H PRN Administration Blood Pressure - High >180/90 Ceftriaxone Sodium 1 gm/ 50 mls @ 100 mls/hr 05/15/25 09:00 05/15/25 08:56 Sodium Chloride IVPB 100 mls/hr Q24H DHARMESH Administration Doxycycline Hyclate 100 mg/ 100 mls @ 100 mls/hr 05/14/25 18:00 05/15/25 06:06 Sodium Chloride IVPB 05/18/25 18:59 100 mls/hr Q12H DHARMESH Administration Magnesium Hydroxide 30 ml 05/14/25 09:37 Magnesium Hydroxide Susp 30 Ml Udc PO DAILY PRN Constipation Methylprednisolone Sodium Succinate 60 mg 05/14/25 14:00 05/15/25 06:07 Methylprednisolone Sod Succ 125 Mg Vial IV PUSH 60 mg Q8HR DHARMESH Administration Ondansetron HCl 4 mg 05/14/25 09:37 Ondansetron Inj 4 Mg/2 Ml Vial IV PUSH Q6H PRN Nausea And Vomiting Perflutren Lipid Microsphere 0 ml 05/15/25 11:11 Perflutren Lipid Microspheres 1.5 Ml Vial Diluted To 10 Ml Total Volume IV PUSH 05/18/25 11:11 ONCE PRN adequate visualization Protocol Radiology Results: ITS Impressions Chest X-Ray 05/14/25 15:21 IMPRESSION: [No acute lung findings.] [ ] Labs Labs: Laboratory Results - last 24 hr 05/15/25 03:44 WBC 21.6 H RBC 4.70 Hgb 14.1 Hct 42.8 MCV 91.1 MCH 30.0 MCHC 32.9 RDW 14.6 H Plt Count 303 MPV 9.2 Immature Gran % (Auto) 0.7 H Neut % (Auto) 86.8 H Lymph % (Auto) 6.9 L [place] % (Auto) 5.5 Eos % (Auto) 0.0 Baso % (Auto) 0.1 L Lymph # (Auto) 1.48 [place] # (Auto) 1.2 H Eos # (Auto) 0.0 Baso # (Auto) 0.0 Abs Immat Gran (auto) 0.16 H Absolute Neuts (auto) 18.7 H Absolute Nucleated RBC 0.000 Nucleated RBC % 0.0 Sodium 140 Potassium 4.3 Chloride 106 Carbon Dioxide 20 L Anion Gap 14 H BUN 16 Creatinine 0.72 Estim Creat Clear Calc 193 Estimated GFR > 60 Glucose 143 H Calcium 9.2 Total Bilirubin 0.5 AST 34 ALT 36 Alkaline Phosphatase 85 Total Protein 8.0 Albumin 4.5 Quality VTE Prophylaxis VTE prophylaxis: mechanical ordered and pharmacologic ordered
[2025-05-16] VITALS (10 sets, daily range): BP systolic 158–173; BP diastolic 103–107; PULSE 74–104; RESP 18–22; TEMP 36.3–37.2; O2SAT 93–95
[2025-05-16] MEDS: IPRATROPIUM 0.5 MG/ALBUTEROL SULFATE 2.5 MG (BASE) AMPUL.NEB 3 ML INHALATION ×3 (03:15→13:59)
[2025-05-16 04:24] LABS: Hematocrit 43.8 % (42.0-52.0); Hemoglobin 14.3 g/dL (14.0-18.0); Immature Granulocyte Percent A 1.0 % (0-0.5); Lymphocytes Absolute Auto 1.78 K/mm3 (0.9-3.2); Mean Corpuscular HGB Conc 32.6 g/dl (32-36); Mean Corpuscular Hemoglobin 30.0 pg (26-34); Mean Corpuscular Volume 91.8 fl (80-100); Nucleated Red Blood Cells Absolute Auto 0.000 K/mm3 (0.0-0.012); Nucleated Red Blood Cells Perc 0.0 % (0.0-0.2); Platelet Count Result 306 k/mm3 (150-375); Red Blood Count 4.77 M/mm3 (4.6-6.20); White Blood Count 18.4 K/mm3 (4.5-10.0)
[2025-05-16 04:58] LABS: Alanine Aminotransferase 40 U/L (6-50); Albumin Level 4.5 g/dL (3.5-5.1); Alkaline Phosphatase 89 U/L (38-126); Anion Gap 14 mmol/L (4-12); Aspartate Amino Transferase 38 U/L (17-59); Bilirubin,Total 0.5 mg/dL (0.2-1.3); Blood Urea Nitrogen 13 mg/dL (9-20); Calcium 9.3 mg/dL (8.4-10.2); Carbon Dioxide 21 mmol/L (22-30); Chloride 103 mmol/L (98-107); Estimated CRCL calculation 201 ml/min; Estimated Glomerular Filt Rate > 60; Glucose 126 mg/dL (65-110); Magnesium 2.2 mg/dL (1.6-2.3); Potassium 4.4 mmol/L (3.4-5.0); Sodium 138 mmol/L (137-145); Total Protein 8.0 g/dL (6.3-8.2)
[2025-05-16] MEDS: DOXYCYCLINE IV 100 MG in SODIUM CHLORIDE 0.9% IV 100 ML IVPB (08:46)
[2025-05-16] MEDS: cefTRIAXone 1 GM in SODIUM CHLORIDE 0.9% IV 50 ML 100 ML IVPB (08:50)
[2025-05-16] MEDS: CHLORTHALIDONE 12.5 MG TAB PO (08:50)
[2025-05-16] MEDS: DOCUSATE SODIUM 100 MG CAPSULE PO (08:50)
[2025-05-16 10:10] LABS: Thyroid Stimulating Hormone Reflex 0.489 uIU/mL (0.465-4.68)
--- NOTE | 2025-05-16 14:36 | P.DS_ITS ---
DS: Admitting Diagnosis Discharge Date 05/16/2025 Admitting Diagnosis Asthma exacerbation DS: Discharge Diagnosis Discharge Diagnosis (1) Asthma exacerbation: Code(s): J45.901 - Unspecified asthma with (acute) exacerbation Status: Acute (2) Pneumonia: Qualifiers: Laterality: right Lung location: lower lobe of lung Pneumonia type: due to unspecified organism Qualified Code(s): J18.9 - Pneumonia, unspecified organism Code(s): J18.9 - Pneumonia, unspecified organism Status: Acute (3) Hypoxia: Code(s): R09.02 - Hypoxemia Status: Acute DS: Summary Hospital Course Hospital Course: HPI per admitting provider: Patient is a 20-year-old male past medical history of asthma presenting with onset of increased sneezing, noting blood in mucus from his nose since last Wednesday, followed by onset of increasing shortness of breath, wheezing, coughing the day after that has not improved since. His home albuterol inhaler helped, however symptoms have persisted and not resolved, prompting him to come to the emergency department. In the ED blood pressure was noted to be extremely elevated, 202/116, improved to 168/103 several hours later. Patient denies relevant history of hypertension and is not on medications for this at this time. Patient denies fever, chills, purulent sputum at this time. Chest x-ray initially shows a right basilar patchy opacity but repeat x-ray with two views was recommended to confirm this. He was started on antibiotics however to cover. Potassium was 3.2, repleted in the ED, patient also did have a leukocytosis and elevated lactic acid 2.1. COVID and flu are negative. After treatments with nebulized albuterol and ipratropium, magnesium sulfate, patient discharged to improve somewhat but is still having symptoms at this time. patient ws managed for asthma exacerbation with IV steroid and bronchodilators, discharged on PO prednisone, Symbicort and Duoneb. F/u with pulm referral. Required oxygen initially and now on room air. Also managed for Pneumonia pneumonia, completed 3 days of Abx, discharge on 4 more days of Levaquin. Cultures negative Patient has a history of hypertension and blood pressure was elevated thsi admission, he was started on Lisinopril, Amldopine and HCTZ, also Renal artery duplex, urine metanephrine, Serum metanephrine, Renin/Aldosterone, DHEAS and renin acitivity ordered. Discussed with patient and mother at [facility] about ruling out secondary etiology. They declined Renal US, grudgingly accepted antihypertensives but noted they will follow up with PCP and Pulm referral. patient recommended to monitor blodo pressure at home, stated he has blood pressure devices at home. Advised to lose weight, cut out sugary beveraged and fast foods, exercise and eat healthy foods. He was also noted to be hypoxic at night, thus i discussed Sleep study with him and the mother. Pulm referral put in for sleep study. In additon patient was advised to lose weight adn they may obviate the need for CPAP. thus patient was managed for obesity and possible sleep apnea. F/u wtih PCP in 3-5 days F/u with Pulm referral Time Spent with Patient Time attestation: Total time spent providing and/or coordinating discharge services: DS: Data Data Completed and Pending Labs on day of discharge: Labs from last 24 hours 05/16/25 05/16/25 05/16/25 10:02 09:02 09:01 WBC RBC Hgb Hct MCV MCH MCHC RDW Plt Count MPV Immature Gran % (Auto) Neut % (Auto) Lymph % (Auto) [place] % (Auto) Eos % (Auto) Baso % (Auto) Lymph # (Auto) [place] # (Auto) Eos # (Auto) Baso # (Auto) Abs Immat Gran (auto) Absolute Neuts (auto) Absolute Nucleated RBC Nucleated RBC % Sodium Potassium Chloride Carbon Dioxide Anion Gap BUN Creatinine Estim Creat Clear Calc Estimated GFR Glucose Calcium Magnesium Total Bilirubin AST ALT Alkaline Phosphatase Total Protein Albumin [place] Activity Pending Pending Aldosterone Pending Aldosterone/Renin Ratio Pending TSH (Reflex) DHEA Sulfate Plasma Metanephrine Pending Plasma Normetanephrine Pending Ur Random Creatinine Cancelled Ur [place] Metanephrines Cancelled Urine Creatinine Pending Urine Metanephrine Pending U Metanephrine/Creat Pending U Normetanephrine Pending U [place] Normetanephrine Cancelled U Total Metanephrines Cancelled 05/16/25 05/16/25 05:04 03:39 WBC 18.4 H RBC 4.77 Hgb 14.3 Hct 43.8 MCV 91.8 MCH 30.0 MCHC 32.6 RDW 14.4 Plt Count 306 MPV 9.4 Immature Gran % (Auto) 1.0 H Neut % (Auto) 86.2 H Lymph % (Auto) 9.7 L [place] % (Auto) 2.9 Eos % (Auto) 0.0 Baso % (Auto) 0.2 Lymph # (Auto) 1.78 [place] # (Auto) 0.5 Eos # (Auto) 0.0 Baso # (Auto) 0.0 Abs Immat Gran (auto) 0.19 H Absolute Neuts (auto) 15.9 H Absolute Nucleated RBC 0.000 Nucleated RBC % 0.0 Sodium 138 Potassium 4.4 Chloride 103 Carbon Dioxide 21 L Anion Gap 14 H BUN 13 Creatinine 0.70 Estim Creat Clear Calc 201 Estimated GFR > 60 Glucose 126 H Calcium 9.3 Magnesium 2.2 Total Bilirubin 0.5 AST 38 ALT 40 Alkaline Phosphatase 89 Total Protein 8.0 Albumin 4.5 Renin Activity Aldosterone Aldosterone/Renin Ratio TSH (Reflex) 0.489 DHEA Sulfate Pending Plasma Metanephrine Plasma Normetanephrine Ur Random Creatinine Ur [place] Metanephrines Urine Creatinine Urine Metanephrine U Metanephrine/Creat U Normetanephrine U [place] Normetanephrine U Total Metanephrines Discharge Plan Discharge Attending physician on discharge: Bill Patel Consulting providers: Tristan Sanders Discharging Clinician: Bill Patel Anticipated Discharge Date/Time: 05/16/25 14:32 Patient Disposition: Home Activity: as tolerated Diet: as tolerated and heart healthy Discharge Instructions: F/u with pulmonology referral for frequent asthma exacerbation adn sleep study Patient Instructions: Antibiotic Form, Asthma (DC), Heart Healthy Diet (DC), Hypertensive Crisis (DC), Hypertension (DC), Shortness of Breath (DC) Patient Language: [place] Stand Alone Forms: General Discharge Information Follow-up/Referrals: PHYSICIAN,CARAMEL CANDY MAKER HELPER [Primary Care Provider, Internal Medicine] Referral Note: F/u with PCP in 3- 5 days Aaron Infante MD [Physician, Pulmonology] Referral Note: Referral in 1 -2 weeks for ASthma excerbation and sleep study Discharge Medications: New hydrochlorothiazide 12.5 mg Capsule 12.5 mg PO QAM 30 Days Qty: 30 0RF levofloxacin 750 mg tablet 750 mg PO DAILY 4 Days Qty: 4 0RF prednisone 20 mg tablet 40 mg PO DAILY 2 Days Qty: 4 0RF budesonide-formoterol [Symbicort] 160-4.5 mcg/actuation HFA aerosol inhaler 2 puff inhalation Q12H 30 Days Qty: 10.2 2RF amlodipine [Norvasc] 5 mg Tablet 5 mg PO DAILY 30 Days Qty: 30 0RF lisinopril 5 mg Tablet 5 mg PO QAM 30 Days Qty: 30 1RF Continued albuterol sulfate 90 mcg/actuation HFA aerosol inhaler 2 inh inhalation Q4H PRN (Reason: shortness of breath or wheezing) Qty: 8.5 0RF prednisone 20 mg tablet 20 mg PO DAILY Qty: 4 0RF Date of admission: 05/15/25 15:17 Primary Care Provider: PHYSICIAN,CARAMEL CANDY MAKER HELPER Admitting Provider: Shwetha Batista Attending physician on admission: Shwetha Batista Condition: Serious
--- NOTE | 2025-05-17 07:41 | P.CDI_ITS ---
CDI Query Clarification Request 1) Patient with a BMI of 48.9 please provide a diagnosis to accompany this finding: * Overweight * Obesity * Morbid Obesity * Other/Unknown 2) Please review the clinical information below and clarify the respiratory diagnosis the patient is being treated for: * Hypoxia or hypoxemia without respiratory failure * Respiratory distress without respiratory failure * Acute respiratory failure with hypoxia * Acute respiratory failure with hypercapnia * Acute respiratory failure with hypoxia and hypercapnia * Acute on chronic respiratory failure with hypoxia * Acute on chronic respiratory failure with hypercapnia * Acute on chronic respiratory failure with hypoxia and hypercapnia * Acute respiratory distress syndrome (ARDS) * Chronic respiratory failure with hypoxia * Chronic respiratory failure with hypercapnia * Chronic respiratory failure with hypoxia and hypercapnia * Other explanation clinical findings, please specify * Unable to determine Discharge Diagnosis (1) Asthma exacerbation: Code(s): J45.901 - Unspecified asthma with (acute) exacerbation Status: Acute (2) Pneumonia: Qualifiers: Laterality: right Lung location: lower lobe of lung Pneumonia type: due to unspecified organism Qualified Code(s): J18.9 - Pneumonia, unspecified organism Code(s): J18.9 - Pneumonia, unspecified organism Status: Acute (3) Hypoxia: Code(s): R09.02 - Hypoxemia Status: Acute DS: Summary Hospital Course Hospital Course: HPI per admitting provider: Patient is a 20-year-old male past medical history of asthma presenting with onset of increased sneezing, noting blood in mucus from his nose since last Wednesday, followed by onset of increasing shortness of breath, wheezing, coughing the day after that has not improved since. His home albuterol inhaler helped, however symptoms have persisted and not resolved, prompting him to come to the emergency department. In the ED blood pressure was noted to be extremely elevated, 202/116, improved to 168/103 several hours later. Patient denies relevant history of hypertension and is not on medications for this at this time. Patient denies fever, chills, purulent sputum at this time. Chest x-ray initially shows a right basilar patchy opacity but repeat x-ray with two views was recommended to confirm this. He was started on antibiotics however to cover. Potassium was 3.2, repleted in the ED, patient also did have a leukocytosis and elevated lactic acid 2.1. COVID and flu are negative. After treatments with nebulized albuterol and ipratropium, magnesium sulfate, patient discharged to improve somewhat but is still having symptoms at this time. patient ws managed for asthma exacerbation with IV steroid and bronchodilators, discharged on PO prednisone, Symbicort and Duoneb. F/u with pulm referral. Required oxygen initially and now on room air. Also managed for Pneumonia pneumonia, completed 3 days of Abx, discharge on 4 more days of Levaquin. Cultures negative Patient has a history of hypertension and blood pressure was elevated thsi admission, he was started on Lisinopril, Amldopine and HCTZ, also Renal artery duplex, urine metanephrine, Serum metanephrine, Renin/Aldosterone, DHEAS and renin acitivity ordered. Discussed with patient and mother at lenght about ruling out secondary etiology. They declined Renal US, grudgingly accepted antihypertensives but noted they will follow up with PCP and Pulm referral. patient recommended to monitor blodo pressure at home, stated he has blood pressure devices at home. Advised to lose weight, cut out sugary beveraged and fast foods, exercise and eat healthy foods. He was also noted to be hypoxic at night, thus i discussed Sleep study with him and the mother. Pulm referral put in for sleep study. In additon patient was advised to lose weight adn they may obviate the need for CPAP. thus patient was managed for obesity and possible sleep apnea. H&P: Patient is a 20-year-old male past medical history of asthma presenting with onset of increased sneezing, noting blood in mucus from his nose since last Wednesday, followed by onset of increasing shortness of breath, wheezing, coughing the day after that has not improved since. His home albuterol inhaler helped, however symptoms have persisted and not resolved, prompting him to come to the emergency department. 2 L NC of o2 documented <Genevieve Naylor RN - Last Filed: 05/17/25 07:45> Clarified Diagnosis Clarified Diagnosis: * Acute respiratory failure with hypoxia <Bill Patel MD - Last Filed: 05/17/25 08:46>
[2025-05-20 09:07] LABS: Renin Activity, Plasma 1.774 ng/mL/hr (0.167-5.380)
[2025-05-23 10:08] LABS: Creatinine, Random U 136.6 mg/dL (Not Estab.); Metanephrine, Ur 59 ug/L (Undefined)
== END 2025-05-16 15:50 | disposition home or self-care (01) | DRG 202 ==
LOC: ANHED 06:05 → ANHIMU 07:30
PROVIDERS: Student in an Organized Health Care Education/Training Program; Admitting Provider Internal Medicine; Emergency Provider Student in an Organized Health Care Education/Training Program; Visit Provider Internal Medicine
DX: J45.901 Unspecified asthma with (acute) exacerbation (principal); J18.9 Pneumonia, unspecified organism; E87.21 Acute metabolic acidosis; R09.02 Hypoxemia; T44.7X5A Adverse effect of beta-adrenoreceptor antagonists, initial encounter; I10 Essential (primary) hypertension; R00.0 Tachycardia, unspecified; E87.6 Hypokalemia; Z20.822 Contact with and (suspected) exposure to COVID-19; G47.30 Sleep apnea, unspecified; E66.9 Obesity, unspecified; Z68.32 Body mass index [BMI] 32.0-32.9, adult
CPT/HCPCS: 36415; 71045; 71046; 71275; 80053; 82570; 82627; 82803; 83605; 83735; 83835; 83880; 84443; 84484; 85025; 87040; 87637; 93005; 93306; 94640; 96361; 96365; 96366; 96367; 96375; 96376; 99291; A9270; G0378; J0360; J0696; J1644; J1885; J2919; J3475; J7030; Q9967